=== PATIENT | male | born 1950 | race Caucasian/White ===

== ENCOUNTER 2018-10-17 06:36 | Outpatient (CLI) | payer MEDICARE ==
[~2018-10-17] VITALS: Ht 160 cm; Wt 81.6 kg
[2018-10-17] VITALS (11 sets, daily range): BP systolic 109–150; BP diastolic 61–74
[2018-10-17] MEDS ORDERED: IODIXANOL 320 MG/ML 100 ML VIAL. ONE ×2 (07:26→09:45)
[2018-10-17] MEDS ORDERED: HEPARIN for ARTERIAL LINE 1,500 ML ONE (07:26)
[2018-10-17] MEDS ORDERED: LIDOCAINE 1% Multi-Dose 20 ML VIAL. ONE (07:26)
[2018-10-17 07:41] LABS: HEMATOCRIT 41.6 % (39.0-53.0); HEMOGLOBIN 13.4 g/dL (13.0-17.5); RED BLOOD COUNT 4.85 x10^6/uL (4.30-5.70); RED CELL DISTRIBUTION WIDTH 13.4 % (11.5-14.5)
[2018-10-17 07:48] LABS: CALCIUM 10.6 mg/dL (8.5-10.1); CREATININE 0.9 mg/dL (0.7-1.3); GFR 83.7; POTASSIUM 4.6 mmol/L (3.5-5.1)
[2018-10-17 07:53] LABS: PROTHROMBIN TIME PATIENT 12.2 SEC (11.7-14.0)
[2018-10-17] MEDS ORDERED: ACET500T68 PO (08:02)
[2018-10-17] MEDS ORDERED: NPH,100V5 SQ (08:02)
[2018-10-17] MEDS ORDERED: NIAC500T PO (08:02)
[2018-10-17] MEDS ORDERED: ASCO10002 PO (08:02)
[2018-10-17] MEDS ORDERED: COLL30OI TP (08:02)
[2018-10-17] MEDS ORDERED: rusuvastatin PO (08:02)
[2018-10-17] MEDS ORDERED: CYAN10005 PO (08:02)
[2018-10-17] MEDS ORDERED: OMEG1CAP43 PO (08:02)
[2018-10-17] MEDS ORDERED: INSU100V11 IJ (08:02)
[2018-10-17] MEDS ORDERED: METO25TA4 PO (08:02)
[2018-10-17] MEDS ORDERED: MULT1TAB52 PO (08:02)
[2018-10-17] MEDS ORDERED: METF500T16 PO (08:02)
[2018-10-17] MEDS ORDERED: CHOL2000 PO (08:02)
[2018-10-17] MEDS ORDERED: GLIM4TAB2 PO (08:02)
[2018-10-17] MEDS ORDERED: ASPI81TA50 PO (08:02)
[2018-10-17] MEDS ORDERED: MIDAZOLAM HCL/PF 2 MG/2 ML VIAL. ONE (08:30)
[2018-10-17] MEDS ORDERED: fentaNYL PF VIAL 100 MCG/2 ML VIAL ONE (08:30)
[2018-10-17] MEDS ORDERED: HEPARIN for IV BOLUS 10,000 UNIT/10 ML VIAL. ONE (09:17)
[2018-10-17] MEDS ORDERED: HEPARIN for IV BOLUS 10,000 UNIT/10 ML VIAL. IV ONE (09:30)
[2018-10-17] MEDS ORDERED: MIDAZOLAM HCL/PF 2 MG/2 ML VIAL. IV ONE (09:30)
[2018-10-17] MEDS ORDERED: fentaNYL PF VIAL 100 MCG/2 ML VIAL IV ONE (09:30)
[2018-10-17] MEDS ORDERED: LIDOCAINE 1% Multi-Dose 20 ML VIAL. INJ ONE (09:30)
[2018-10-17] MEDS ORDERED: IODIXANOL 320 MG/ML 100 ML VIAL. IART ONE (09:30)
--- NOTE | 2018-10-17 13:57 | NUR ---
Discharge Note: JACKLYN PERAZA Patient tolerated po intake well with no issues. Discharge instructions and discharge home medications reviewed with Spouse and a copy given. All questions have been answered and understanding verbalized. The following instructions and handouts were given: Moderate sedation and groin site care. Discontinued lines and drains: left PIV hand, dressing clean dry intact. Patient discharged to home with spouse via wheelchair in private vehicle.
--- NOTE | 2018-10-17 16:07 | OP ---
DATE OF SURGERY: 10/17/2018 PREOPERATIVE DIAGNOSES: Atherosclerosis of [place] arteries of left lower extremity with ulceration of the left third toe. POSTOPERATIVE DIAGNOSIS: Atherosclerosis of [place] arteries of left lower extremity with ulceration of the left third toe. PROCEDURE PERFORMED: 1. Ultrasound-guided access, right common femoral artery. 2. Third order selective catheter placement below the diaphragm (access right common femoral catheter tip left posterior tibial). 3. Radiologic supervision and interpretation aortogram. 4. Radiologic supervision and interpretation left lower extremity runoff. 5. Unsuccessful attempt to cross the left posterior tibial artery long segment complete occlusion. ANESTHESIA: Conscious sedation under surgeon and RN supervision, 90 minutes, fentanyl 50 mcg, Versed 1 mg. INDICATIONS: The patient is a very pleasant male with abnormal lower extremity noninvasive arterial studies and left third toe wound that is nonhealing for over 3 months. He is being brought to the quality assurance/r&d lab technician today for angiography and possible intervention for limb salvage. The procedure to include risks, benefits, alternatives discussed with the patient. Signed informed consent was obtained and placed in the patient's chart preoperatively. RADIOLOGIC FINDINGS: 1. The aorta is widely patent without aneurysm or significant aortic occlusive disease. Renal arteries are patent on a single AP view. 2. On AP and oblique views, the bilateral common iliac, external iliac, and internal iliac arteries are widely patent. 3. Bilateral common femoral, profunda femoris arteries are widely patent. 4. The left superficial femoral artery and popliteal arteries widely patent. 5. Below the knee, the left anterior tibial artery and peroneal artery give runoff to the foot and the ankle respectively. There is small vessel disease within the forefoot. The left posterior tibial artery occludes a few centimeters after its origin and then reconstitutes as the medial tarsal branch in the foot. I was unable to successfully recanalize posterior tibial artery. DESCRIPTION OF PROCEDURE: The patient was escorted to the quality assurance/r&d lab technician, placed upon the table and sedation induced under my supervision after appropriate timeout was performed. The groins were prepped and draped in the usual sterile fashion. Attention was directed to the right groin where the right common femoral artery was fluoroscopically marked on the femoral head and examined with ultrasound. Under ultrasound, the vessel was found to be widely patent with good flow and an image of the vessel was taken to save for the medical record. Under real time ultrasound guidance, local anesthetic was injected in the right groin and the right common femoral artery was accessed in a retrograde fashion using a micropuncture needle. This was used to place a micropuncture wire into the iliac artery under fluoroscopic guidance and exchanged the needle for a micropuncture sheath, which was aspirated and flushed without difficulty. This was used to introduce a Bentson wire into the aorta under fluoroscopic guidance and exchanged the micropuncture sheath for a 5-Belizean sheath which was aspirated and flushed without difficulty. This was used to introduce flush catheter into the suprarenal abdominal aorta. An aortogram was obtained. The catheter was then pulled into the aortic bifurcation and oblique pelvic angiograms were obtained. I then used a catheter and a Glidewire to cross the bifurcation and passed the wire into the left superficial femoral artery. I exchanged the flush catheter for a glide catheter and advanced this up and over the aortic bifurcation with the distal tip in the left common femoral artery. With the catheter in this position, left lower extremity runoff to the knee was obtained. The catheter was then advanced over the Glidewire to the left distal SFA at the adductor canal and selective angiograms below the knee were obtained down to the foot. Given the small vessel disease in the foot and the posterior tibial occlusion, I elected to attempt to recanalize this. I used a combination of a catheter exchange and wire with the [place] and then Merit stiff angle catheter to get super core wire up and over the aortic bifurcation with the distal tip in the left popliteal artery. Then, this was used to exchange the 5-Belizean sheath for a 6-Belizean 90 cm Terumo Destination sheath, passed up and over the aortic bifurcation and the distal tip of the left popliteal artery. Additional angiograms below the knee were obtained confirming placement. I then used the angled Merit catheter, a 0.018 Quick-Cross and a V-18 wire to attempt to cross the posterior tibial PHYSICAL THERAPY AIDES TEACHER. I crossed most of this, but then entered a perforation of a small collateral in the middle of the PHYSICAL THERAPY AIDES TEACHER and was unable to cross further. I tried several attempts and was unable to reenter the true lumen. I directed attention of the foot and magnified. Angiograms here showed the vessels below the medial malleolus were patent. I examined these under ultrasound directly and attempted retrograde pedal access, but was unable to cannulate the small lumen. Given the fact that the patient had a runoff to the foot, we then elected to [facility] and see if hyperbaric oxygen would be sufficient to heal his wound. The sheath was removed over the Supra Core wire and then the Supra Core was removed via a short 6-Belizean sheath over the Merit wire. The Bentson wire was reintroduced in the abdominal aorta and then the Bentson wire was used to introduce a 6-[place]izean Angio-Seal device, which was deployed at the right common femoral artery access with excellent hemostasis. The patient was then escorted to recovery in stable condition. There were no complications. The patient tolerated the procedure well throughout the procedure. GIL MD CRISTIAN DR: Kishan JOB#: [id number] / [id number]
== END 2018-10-17 13:20 | disposition home or self-care (01) ==
LOC: CCL 06:36
PROVIDERS: ATTEND Surgery Vascular Surgery
DX: I70.245 Atherosclerosis of native arteries of left leg with ulceration of other part of foot (principal); L97.528 Non-pressure chronic ulcer of other part of left foot with other specified severity; I10 Essential (primary) hypertension; E78.00 Pure hypercholesterolemia, unspecified; H04.129 Dry eye syndrome of unspecified lacrimal gland; E11.9 Type 2 diabetes mellitus without complications; Z98.890 Other specified postprocedural states; Z88.1 Allergy status to other antibiotic agents; Z88.8 Allergy status to other drugs, medicaments and biological substances; Z79.82 Long term (current) use of aspirin; Z79.899 Other long term (current) drug therapy; Z79.84 Long term (current) use of oral hypoglycemic drugs; Z72.89 Other problems related to lifestyle
CPT/HCPCS: 36247; 36415; 75625; 75710; 76937; 80048; 85027; 85610; 99152; 99153; C1769; C1771; C1887; C1892; C1894; G0269; J1644; J2250; J3010; Q9967; 36245; 36246; C1760